=== PATIENT | male | born 1995 | race Caucasian/White ===

== ENCOUNTER → 2017-02-19 | Outpatient (CLI) | payer OTHER | LOC: LAB 22:23 | DX: Z02.83 Encounter for blood-alcohol and blood-drug test (principal) | CPT/HCPCS: 36415 ==

== ENCOUNTER 2021-04-15 16:19 | Emergency (ER) | payer OTHER ==
[~2021-04-15 16:19] MED LIST: IBUPROFEN600 MG PO; TESSALON PERLE100 MG PO; VIBRAMYCIN100 MG PO; ZOFRAN ODT 4 MG4 MG SL
[2021-04-15 17:49] LABS: HEMOGLOBIN 14.3 gm/dl (14.0-17.5); RED BLOOD COUNT 4.81 M/UL (4.20-5.50)
[2021-04-15 18:08] LABS: BUN/CREATININE RATIO 25 (0-10)
[2021-04-15] MEDS ORDERED: ZOFRAN4 MG PO (20:29)
== END 2021-04-15 20:35 | disposition home or self-care (01) ==
LOC: ER1 16:19
PROVIDERS: Preventive Medicine Occupational Medicine
DX: A08.4 Viral intestinal infection, unspecified (principal); F17.210 Nicotine dependence, cigarettes, uncomplicated; Z20.822 Contact with and (suspected) exposure to COVID-19
CPT/HCPCS: 0240U; 80053; 81001; 85025; 85652; 86140; 87086; 96374; 96376; 99284; J2405; J7030